=== PATIENT | male | born 1940 | race Caucasian/White ===

== ENCOUNTER 2016-12-01 15:20 | Emergency (ER) | payer OTHER, MEDICARE ==
[~2016-12-01] VITALS: Ht 180.3 cm; Wt 87.9 kg
[2016-12-01] MEDS ORDERED: ASPIR 8181 M1 PO (15:46)
[2016-12-01] MEDS ORDERED: AMLODIPINE BESY10 MG PO (15:46)
[2016-12-01] MEDS ORDERED: CENTRUM SILVER1 EAC3 PO (15:46)
[2016-12-01 16:08] LABS: ADD MIUA? YES; BILIRUBIN NEGATIVE; BLOOD MODERATE; GLUCOSE (STRIP) 50; KETONES NEGATIVE; LEUKOCYTES NEGATIVE; PROTEIN (STRIP) 100; SPECIFIC GRAVITY 1.008 (1.000-1.030); UROBILINOGEN 0.2 MG/DL (0.2-1.0)
[2016-12-01 16:18] LABS: COLOR RED ((YELLOW))
[2016-12-01 16:30] LABS: MCH 29.2 PG (29.0-34.0); MCHC 33.8 G/DL (30.0-36.0); MCV 86.3 FL (86-99); MEAN PLAT.VOLUME 9.1 uM^3 (9.0-12.4); PLATELET COUNT 321 K/uL (156-360); RBC DIS.WIDTH-CV 12.7 % (11.8-14.6); RED BLOOD COUNT 4.52 M/uL (4.00-5.50); WHITE BLOOD COUNT 8.7 K/uL (4.1-10.2)
[2016-12-01 16:34] LABS: BACTERIA 2+ /HPF; EPITHELIAL CELLS RARE /HPF; MUCUS NONE SEEN /LPF; NITRITE NEGATIVE; RED BLOOD CELLS TNTC /HPF (0-5); UCUL ADDED? NO; WHITE BLOOD CELLS 0-5 /HPF (0-5)
[2016-12-01 16:38] LABS: CHLORIDE 103 mEq/L (99-109); POTASSIUM 3.6 mEq/L (3.7-5.4); SODIUM 137 mEq/L (136-147)
[2016-12-01 16:40] LABS: GLUCOSE 105 mg/dL (70-99)
[2016-12-01 16:41] LABS: ANION GAP 12 MEQ/L (2-14)
[2016-12-01 16:44] LABS: GFR ESTIMATE (CALCULATED) > 59 mL/min/
[2016-12-01 16:45] LABS: UREA NITROGEN (BUN) 10 mg/dL (9-23)
[2016-12-01] MEDS ORDERED: CIPRO500 MG PO (17:01)
[2016-12-01 17:10] VITALS: BP 146/83
== END 2016-12-01 17:44 | disposition home or self-care (01) ==
LOC: EME 15:20
DX: N39.0 Urinary tract infection, site not specified (principal); R31.9 Hematuria, unspecified; Z85.46 Personal history of malignant neoplasm of prostate; I10 Essential (primary) hypertension; Z79.82 Long term (current) use of aspirin; Z87.891 Personal history of nicotine dependence
CPT/HCPCS: 80048; 81003; 85027; 87086; 99281; 99285

== ENCOUNTER 2017-10-16 01:00 | Inpatient (IN) | payer OTHER, MEDICARE ==
[~2017-10-16] VITALS: Ht 157.5 cm; Wt 59.5 kg
[~2017-10-16 01:00] MED LIST: AMLODIPINE BESY10 MG PO; ASPIR 8181 M1 PO; CENTRUM SILVER1 EAC3 PO; CIPRO500 MG PO
[2017-10-16 01:20] LABS: APPEARANCE SL.HAZY ((CLEAR)); BILIRUBIN NEGATIVE; BLOOD MODERATE; GLUCOSE (STRIP) 50; KETONES NEGATIVE; LEUKOCYTES TRACE; NITRITE NEGATIVE; PROTEIN (STRIP) 100; SPECIFIC GRAVITY 1.005 (1.000-1.030); UROBILINOGEN 0.2 MG/DL (0.2-1.0)
[2017-10-16 01:22] LABS: COLOR RED ((YELLOW))
[2017-10-16 01:24] LABS: BASOPHIL COUNT 0.1 K/uL (0-0.1); EOSINOPHIL (%) 0.7 % (0-5); EOSINOPHIL COUNT 0.1 K/uL (0-0.3); HEMATOCRIT 37.3 % (38.0-50.0); HEMOGLOBIN 12.9 G/DL (12.5-16.6); IMMATURE GRANULOCYTE (%) 0.5 % (0.0-0.7); LYMPHOCYTE (%) 29.1 % (15-42); MCH 30.2 PG (29.0-34.0); MCHC 34.6 G/DL (30.0-36.0); MCV 87.4 FL (86-99); MONOCYTE (%) 9.3 % (3-12); NEUTROPHIL (%) 59.4 % (45-76); NEUTROPHIL COUNT 6.1 K/uL (1.8-6.4); PLATELET COUNT 355 K/uL (156-360); RBC DIS.WIDTH-CV 12.7 % (11.8-14.6); RBC DIS.WIDTH-SD 40.3 % (39-53); RED BLOOD COUNT 4.27 M/uL (4.00-5.50); WHITE BLOOD COUNT 10.3 K/uL (4.1-10.2)
[2017-10-16 01:27] LABS: BACTERIA 1+ /HPF; EPITHELIAL CELLS NONE SEEN /HPF; MUCUS 2+ /LPF; RED BLOOD CELLS TNTC /HPF (0-5); UCUL ADDED? YES
[2017-10-16 01:34] LABS: CHLORIDE 103 mEq/L (99-109); POTASSIUM 3.7 mEq/L (3.7-5.4); SODIUM 140 mEq/L (136-147)
[2017-10-16 01:35] LABS: GLUCOSE 114 mg/dL (70-99)
[2017-10-16 01:39] LABS: GFR ESTIMATE (CALCULATED) > 59 mL/min/ (58.99-99999)
[2017-10-16 01:40] LABS: UREA NITROGEN (BUN) 10 mg/dL (9-23)
[2017-10-16 04:43] VITALS: BP 146/70
[2017-10-16 07:58] VITALS: BP 112/70
[2017-10-16 16:00] VITALS: BP 112/65
[2017-10-16 23:12] VITALS: BP 125/77
[2017-10-17 07:41] VITALS: BP 137/70
[2017-10-17 16:37] VITALS: BP 118/63
[2017-10-18 00:43] VITALS: BP 117/72
[2017-10-18 07:06] LABS: ALBUMIN 3.7 G/DL (3.2-4.8); ALKALINE PHOSPHATASE 58 IU/L (3-129); ALT (GPT) 10 IU/L (3-49); AST (GOT) 18 IU/L (2-34); CHLORIDE 106 MEQ/L (99-109); GFR ESTIMATE (CALCULATED) > 59 mL/min/ (58.99-99999); GLUCOSE 93 mg/dL (70-99); POTASSIUM 3.7 MEQ/L (3.7-5.4); SODIUM 141 MEQ/L (136-147); TOTAL BILIRUBIN 0.5 MG/DL (0.0-1.0); TOTAL PROTEIN 6.1 G/DL (6.4-8.3); UREA NITROGEN (BUN) 11 mg/dL (9-23)
[2017-10-18 07:15] VITALS: BP 117/71
[2017-10-18 07:50] LABS: HEMATOCRIT 32.3 % (38.0-50.0); MCH 29.3 PG (29.0-34.0); MCHC 33.1 G/DL (30.0-36.0); MCV 88.5 FL (86-99); PLATELET COUNT 305 K/uL (156-360); RBC DIS.WIDTH-CV 12.8 % (11.8-14.6); RBC DIS.WIDTH-SD 41.7 % (39-53); RED BLOOD COUNT 3.65 M/uL (4.00-5.50); WHITE BLOOD COUNT 8.6 K/uL (4.1-10.2)
[2017-10-18 07:53] LABS: HEMOGLOBIN 10.7 G/DL (12.5-16.6)
[2017-10-18 15:35] VITALS: BP 129/75
[2017-10-18 19:14] VITALS: BP 125/68
[2017-10-18 22:59] VITALS: BP 137/65
[2017-10-19 03:55] VITALS: BP 125/44
[2017-10-19 06:50] VITALS: BP 128/75
[2017-10-20] MEDS ORDERED: CIPRO500 MG PO (17:46)
== END 2017-10-19 15:42 | disposition home or self-care (01) | DRG 699 ==
LOC: EME 01:00 → 5EAST 03:50 → EDOF 03:50 → ENRESERV 03:53 → 5EAST 04:37
PROVIDERS: Emergency Medicine; Internal Medicine
PROC: 0T9B70Z Drainage of Bladder with Drainage Device, Via Natural or Artificial Opening (ICD-10-PCS; principal; 2017-10-16)
DX: N30.41 Irradiation cystitis with hematuria (principal); N32.0 Bladder-neck obstruction; Z85.46 Personal history of malignant neoplasm of prostate; Z92.3 Personal history of irradiation; Z92.21 Personal history of antineoplastic chemotherapy; I10 Essential (primary) hypertension; N13.4 Hydroureter; N13.30 Unspecified hydronephrosis; D64.9 Anemia, unspecified; Z79.82 Long term (current) use of aspirin; Z80.0 Family history of malignant neoplasm of digestive organs; Z80.42 Family history of malignant neoplasm of prostate; Z87.891 Personal history of nicotine dependence
CPT/HCPCS: 74176; 80048; 80053; 81003; 85025; 85027; 87086; 87086 GA; 99281; 99284

== ENCOUNTER 2017-10-20 15:50 | Emergency (ER) | payer OTHER, MEDICARE ==
[~2017-10-20] VITALS: Ht 180.3 cm; Wt 87.2 kg
[2017-10-20 16:35] LABS: APPEARANCE CLOUDY ((CLEAR)); BILIRUBIN NEGATIVE; BLOOD MODERATE; COLOR YELLOW ((YELLOW)); GLUCOSE (STRIP) NEGATIVE; KETONES 5; LEUKOCYTES LARGE; NITRITE POSITIVE; PROTEIN (STRIP) 30; SPECIFIC GRAVITY 1.013 (1.000-1.030); UROBILINOGEN 0.2 MG/DL (0.2-1.0)
[2017-10-20 16:39] LABS: HEMATOCRIT 35.6 % (38.0-50.0); HEMOGLOBIN 12.5 G/DL (12.5-16.6); MCH 30.6 PG (29.0-34.0); MCHC 35.1 G/DL (30.0-36.0); PLATELET COUNT 341 K/uL (156-360); RBC DIS.WIDTH-CV 12.8 % (11.8-14.6); RED BLOOD COUNT 4.09 M/uL (4.00-5.50)
[2017-10-20 16:41] LABS: BACTERIA NONE SEEN /HPF; EPITHELIAL CELLS NONE SEEN /HPF; MUCUS TRACE /LPF; RED BLOOD CELLS 20-30 /HPF (0-5); WHITE BLOOD CELLS TNTC /HPF (0-5)
[2017-10-20 16:51] LABS: CHLORIDE 99 mEq/L (99-109); POTASSIUM 3.6 mEq/L (3.7-5.4); SODIUM 135 mEq/L (136-147)
[2017-10-20 16:53] LABS: GLUCOSE 124 mg/dL (70-99)
[2017-10-20 16:57] LABS: GFR ESTIMATE (CALCULATED) > 59 mL/min/ (58.99-99999); UREA NITROGEN (BUN) 12 mg/dL (9-23)
[2017-10-20] MEDS ORDERED: CIPRO500 MG PO (17:46)
[2017-10-20 18:13] VITALS: BP 128/91
== END 2017-10-20 18:13 | disposition home or self-care (01) ==
LOC: EME 15:50
PROVIDERS: Nurse Practitioner Family
DX: N30.90 Cystitis, unspecified without hematuria (principal); R34 Anuria and oliguria; R10.9 Unspecified abdominal pain; Z85.46 Personal history of malignant neoplasm of prostate; I10 Essential (primary) hypertension; Z92.21 Personal history of antineoplastic chemotherapy; Z92.3 Personal history of irradiation; Z87.891 Personal history of nicotine dependence
CPT/HCPCS: 74176; 80048; 81003; 83605; 85027; 87040; 87077; 87086; 87147; 87186; 99281; 99285; J0696